=== PATIENT | male | born 1950 ===

== ENCOUNTER 2017-12-18 13:29 | Emergency (ER) | payer BC ==
--- NOTE | 2017-12-18 13:38 | ER Report ---
History and Physical Time Seen By MD: 13:38 Hx. of Stated Complaint: PT JUST GOT INTO TOWN, SOB, DIZZY HPI/ROS Source of History: The Patient Chief Concern: shortness of breath History of Present Illnesses: 67-year-old male reports that he and his came into town today originally from [place]. Reports [place] During the drive he started to feel short of breath and dizzy. When they pulled the vehicle over and he got out the dizziness and shortness of breath did not improve. States laying down has improved his symptoms. Reports no other alleviating or aggravating factors. No associated symptoms including chest pain. No treatments tried. Constitutional: Denies recent illness, malaise, chills, fever. HEENT: Denies headache. No sinus congestion. No sore throat. Cardiovascular: Denies chest pain, palpitations, or diaphoresis. Respiratory: Reports shortness of breath, denies cough or wheezing. Gastrointestinal System: Denies nausea, vomiting, diarrhea or constipation Genitourinary: Denies lower back pain, hematuria, painful voiding, or trouble with emptying bladder. Musculoskeletal: Denies muscular pain, no joint pain. Allergies: Coded Allergies: prochlorperazine (Verified Allergy, Mild, 12/18/17) Home Meds No Active Prescriptions or Reported Meds Past Medical/Surgical History Past Surgical History: testicular surgery at 20 years Denies significant past medical history, no previous hospitalizations. Reviewed Nurses Notes: Yes Constitutional Vital Sign - Last 24 Hours 12/18/17 12/18/17 12/18/17 12/18/17 13:32 13:33 13:59 14:00 Temp 98.2 Pulse 81 71 Resp 16 14 B/P (MAP) 157/83 (107) 157/83 144/85 (104) Pulse Ox 98 96 O2 Delivery Room Air 12/18/17 12/18/17 12/18/17 12/18/17 14:22 14:29 14:30 14:59 Pulse 75 67 Resp 20 B/P (MAP) 143/76 (98) 137/72 (93) Pulse Ox 95 12/18/17 12/18/17 12/18/17 12/18/17 15:00 15:05 15:35 15:52 Pulse 65 76 85 Resp 9 22 16 B/P (MAP) 144/77 (99) 144/78 (100) Pulse Ox 97 93 92 O2 Delivery Room Air Intake and Output 12/18/17 12/18/17 12/19/17 15:00 23:00 07:00 Intake Total 1000 ml Balance 1000 ml Physical Exam Constitutional: 67-year-old male in no acute distress. Extremities warm to touch. Skin: [place] and well perfused BL. Head: Normocephalic and atraumatic. Eyes: Non-injected. No exudates. PERRLA. Corneas grossly intact. Extra ocular movements intact. Neck: Neck supple, erect, trachea midline, no masses. Thyroid no enlargement or nodules, non-tender. Lymph nodes- cervical chain, pre-and post-auricular, occipital, mandibular, and submental lymph nodes non-tender and non-palpable. Cardiovascular: 2+ radial pulses BL equal. PMI - left midclavicular at the 5th ICS. Aortic, pulmonic, tricuspid, and mitral areas - clear S1/S2; no murmur, no S3, or S4. Respiratory: Respiratory Excursion BL equal and symmetrical; no presence of lag ; quiet, rhythmic and effortless. No retractions. BL clear and equal. GI: nondistended, normoactive BS, nontender Differential Diagnoses: AR, PE, pneumonia, dehydration, altitude sickness Medical Decision Making Data Points Result Diagram: 12/18/17 1335 12/18/17 1335 Laboratory Hematology Test 12/18/17 13:35 12/18/17 14:20 Red Blood Count 5.47 M/uL (4.00-5.60) Mean Corpuscular Volume 87.1 fL (80.0-96.0) Mean Corpuscular Hemoglobin 30.2 pg (26.0-33.0) Mean Corpuscular Hemoglobin Concent 34.7 g/dL (32.0-36.0) Red Cell Distribution Width 14.0 % (11.5-14.5) Mean Platelet Volume 8.7 fL (7.2-11.1) Neutrophils (%) (Auto) 58.9 % (39.4-72.5) Lymphocytes (%) (Auto) 30.7 % (17.6-49.6) Monocytes (%) (Auto) 7.6 % (4.1-12.4) Eosinophils (%) (Auto) 2.0 % (0.4-6.7) Basophils (%) (Auto) 0.8 % (0.3-1.4) Nucleated RBC Relative Count (auto) 0.1 /100WBC Neutrophils # (Auto) 5.7 K/uL (2.0-7.4) Lymphocytes # (Auto) 3.0 K/uL (1.3-3.6) Monocytes # (Auto) 0.7 K/uL (0.3-1.0) Eosinophils # (Auto) 0.2 K/uL (0.0-0.5) Basophils # (Auto) 0.1 K/uL (0.0-0.1) Nucleated RBC Absolute Count (auto) 0.00 K/uL D-Dimer Quantitative (PE/DVT) 0.34 ug/ml (0-0.50) Sodium Level 137 mmol/L (137-145) Potassium Level 4.0 mmol/L (3.5-5.0) Chloride Level 101 mmol/L (98-107) Carbon Dioxide Level 26 mmol/L (22-30) Blood Urea Nitrogen 20 mg/dl (9-21) Creatinine 1.10 mg/dl (0.66-1.25) Glomerular Filtration Rate Calc > 60.0 Random Glucose 93 mg/dl (75-110) Calcium Level 9.6 mg/dl (8.4-10.2) Total Bilirubin 0.6 mg/dl (0.2-1.3) Aspartate Amino Transf (AST/SGOT) 33 U/L (0-35) Alanine Aminotransferase (ALT/SGPT) 21 U/L (0-56) Alkaline Phosphatase 84 U/L (0-126) Troponin I < 0.012 ng/ml Total Protein 7.7 g/dl (6.3-8.2) Albumin 4.4 g/dl (3.5-5.0) Urine Color Yellow Urine Clarity Clear Urine pH 7.0 pH (4.8-9.5) Urine Specific [place] 1.013 Urine Protein Negative mg/dL (NEGATIVE) Urine Glucose (UA) Negative mg/dL (NEGATIVE) Urine Ketones Trace mg/dL (NEGATIVE) Urine Blood Negative (NEGATIVE) Urine Nitrite Negative (NEGATIVE) Urine Bilirubin Negative (NEGATIVE) Urine Urobilinogen Negative mg/dL (0.2-1.9) Urine Leukocyte Esterase Negative (NEGATIVE) Urine RBC 1 /HPF (0-2/HPF) Urine WBC None /HPF (0-5/HPF) Urine Squamous Epithelial Cells Few /LPF (</=FEW) Urine Bacteria Negative /HPF (NONE-FEW) Urine Mucus None /HPF (NONE-FEW) Chemistry Test 12/18/17 13:35 12/18/17 14:20 White Blood Count 9.6 k/uL (4.5-11.0) Red Blood Count 5.47 M/uL (4.00-5.60) Hemoglobin 16.5 g/dL (14.0-18.0) Hematocrit 47.7 % (42.0-52.0) Mean Corpuscular Volume 87.1 fL (80.0-96.0) Mean Corpuscular Hemoglobin 30.2 pg (26.0-33.0) Mean Corpuscular Hemoglobin Concent 34.7 g/dL (32.0-36.0) Red Cell Distribution Width 14.0 % (11.5-14.5) Platelet Count 273 K/uL (150-450) Mean Platelet Volume 8.7 fL (7.2-11.1) Neutrophils (%) (Auto) 58.9 % (39.4-72.5) Lymphocytes (%) (Auto) 30.7 % (17.6-49.6) Monocytes (%) (Auto) 7.6 % (4.1-12.4) Eosinophils (%) (Auto) 2.0 % (0.4-6.7) Basophils (%) (Auto) 0.8 % (0.3-1.4) Nucleated RBC Relative Count (auto) 0.1 /100WBC Neutrophils # (Auto) 5.7 K/uL (2.0-7.4) Lymphocytes # (Auto) 3.0 K/uL (1.3-3.6) Monocytes # (Auto) 0.7 K/uL (0.3-1.0) Eosinophils # (Auto) 0.2 K/uL (0.0-0.5) Basophils # (Auto) 0.1 K/uL (0.0-0.1) Nucleated RBC Absolute Count (auto) 0.00 K/uL D-Dimer Quantitative (PE/DVT) 0.34 ug/ml (0-0.50) Glomerular Filtration Rate Calc > 60.0 Calcium Level 9.6 mg/dl (8.4-10.2) Total Bilirubin 0.6 mg/dl (0.2-1.3) Aspartate Amino Transf (AST/SGOT) 33 U/L (0-35) Alanine Aminotransferase (ALT/SGPT) 21 U/L (0-56) Alkaline Phosphatase 84 U/L (0-126) Troponin I < 0.012 ng/ml Total Protein 7.7 g/dl (6.3-8.2) Albumin 4.4 g/dl (3.5-5.0) Urine Color Yellow Urine Clarity Clear Urine pH 7.0 pH (4.8-9.5) Urine Specific [place] 1.013 Urine Protein Negative mg/dL (NEGATIVE) Urine Glucose (UA) Negative mg/dL (NEGATIVE) Urine Ketones Trace mg/dL (NEGATIVE) Urine Blood Negative (NEGATIVE) Urine Nitrite Negative (NEGATIVE) Urine Bilirubin Negative (NEGATIVE) Urine Urobilinogen Negative mg/dL (0.2-1.9) Urine Leukocyte Esterase Negative (NEGATIVE) Urine RBC 1 /HPF (0-2/HPF) Urine WBC None /HPF (0-5/HPF) Urine Squamous Epithelial Cells Few /LPF (</=FEW) Urine Bacteria Negative /HPF (NONE-FEW) Urine Mucus None /HPF (NONE-FEW) Coagulation Test 12/18/17 13:35 D-Dimer Quantitative (PE/DVT) 0.34 ug/ml Urinalysis Test 12/18/17 14:20 Urine Color Yellow Urine Clarity Clear Urine pH 7.0 pH (4.8-9.5) Urine Specific [place] 1.013 Urine Protein Negative mg/dL (NEGATIVE) Urine Glucose (UA) Negative mg/dL (NEGATIVE) Urine Ketones Trace mg/dL (NEGATIVE) Urine Blood Negative (NEGATIVE) Urine Nitrite Negative (NEGATIVE) Urine Bilirubin Negative (NEGATIVE) Urine Urobilinogen Negative mg/dL (0.2-1.9) Urine Leukocyte Esterase Negative (NEGATIVE) Urine RBC 1 /HPF (0-2/HPF) Urine WBC None /HPF (0-5/HPF) Urine Squamous Epithelial Cells Few /LPF (</=FEW) Urine Bacteria Negative /HPF (NONE-FEW) Urine Mucus None /HPF (NONE-FEW) EKG/Imaging Imaging 2 VIEWS CHEST INDICATION: Respiratory distress, dizziness, lightheaded. COMPARISON: None available FINDINGS: Cardiomediastinal silhouette and pulmonary vessels within normal limits. There is no focal infiltrate or lobar consolidation. There is no pneumothorax or pleural effusion. No nodule. Upper abdomen is unremarkable. No acute bony abnormality. IMPRESSION: 1. No acute cardiopulmonary process. Report Dictated By: Rafa Silva at 12/18/2017 2:29 PM Report E-Signed By: Rafa Silva at 12/18/2017 2:30 PM ED Course/Re-evaluation ED Course 67-year-old male presents to the emergency department after the experienced shortness of breath and dizziness. The patient and his are in town from [place]. History and physical examination were obtained. Differential diagnoses were considered and shared with the patient and patient's . CBC, CMP, troponin, d-dimer, EKG, and chest x-ray obtained. Lab work was unremarkable, EKG showed a normal sinus rhythm, troponin was negative, d-dimer was negative as well. Patient had received approximately half of a liter of normal saline. Patient states he feels significantly improved at this time. We will go ahead and discharge patient. He is to follow-up with his primary care provider with any concerns in 1-2 weeks. If he is any worsening of his condition he is to return to the emergency room immediately. Patient states that he is feeling better would like to go home at this time. He is continue with his normal medications. Patient and his verbalized understanding and agreement with plan. Decision to Disposition Date: Dec 18, 2017 Decision to Disposition Time: 15:47 Depart Departure Latest Vital Signs Vital Signs Date Time Temp Pulse Resp B/P (MAP) Pulse Ox O2 Delivery O2 Flow Rate FiO2 12/18/17 15:52 85 16 144/78 (100) 92 Room Air 12/18/17 13:33 98.2 Impression: Primary Impression: Dehydration Condition: Improved Disposition: HOME OR SELF-CARE New Scripts No Active Prescriptions or Reported Meds Patient Instructions: Dehydration (ED) Additional Instructions: Increase fluid intake. Get plenty of rest. Follow up in the ER if condition worsens. Limit activity by how you are feeling. Follow up with your primary care provider in the next 1-2 weeks when you return home. If you have worsening symptoms I would encourage you to stay in a lower elevation. JANETTE LUCIO Dec 18, 2017 13:38
[2017-12-18] MEDS ORDERED: NS(*) 0.9% 1000 ML BAG 1,000 ML IV ONE (14:03)
--- NOTE | 2017-12-18 14:15 | EKG ---
FACILITY: [facility] PATIENT NAME: JONO MALDONADO : [id number] MR: [id number] V: [id number] EXAM DATE: ORDERING PHYSICIAN: JANETTE LUCIO TECHNOLOGIST: CLIFTON Amaya Reason : SYNCOPE Blood Pressure : / mmHG Vent. Rate : 073 BPM Atrial Rate : 073 BPM P-R Int : 128 ms QRS Dur : 090 ms QT Int : 394 ms P-R-T Axes : 065 036 063 degrees QTc Int : 434 ms Normal sinus rhythm Normal ECG No previous ECGs available Confirmed by JIMBO POSADA ([id number]) on 12/18/2017 8:23:55 PM Referred By: PALMER Confirmed By:JIMBO POSADA
[2017-12-18 14:16] LABS: PLATELET COUNT, AUTOMATED 273 K/uL (150-450)
--- NOTE | 2017-12-18 14:35 | RADIOLOGY IMAGING REPORT ---
FACILITY: [facility] - [place] PATIENT NAME: Niraj Daniels : 1950 MR: [id number] V: [id number] EXAM DATE: ORDERING PHYSICIAN: JANETTE LUCIO TECHNOLOGIST: Location: [facility] [place] Patient: Niraj Daniels : 1950 Visit/Account:[id number] Date of Sevice: 12/18/2017 2 VIEWS CHEST INDICATION: Respiratory distress, dizziness, lightheaded. COMPARISON: None available FINDINGS: Cardiomediastinal silhouette and pulmonary vessels within normal limits. There is no focal infiltrate or lobar consolidation. There is no pneumothorax or pleural effusion. No nodule. Upper abdomen is unremarkable. No acute bony abnormality. IMPRESSION: 1. No acute cardiopulmonary process. Report Dictated By: Rafa Silva at 12/18/2017 2:29 PM Report E-Signed By: Rafa Silva at 12/18/2017 2:30 PM WSN:[id number]
[2017-12-18 15:52] VITALS: BP 144/78
== END 2017-12-18 16:00 | disposition home or self-care (01) ==
LOC: ER 13:47
DX: E86.0 Dehydration (principal)
CPT/HCPCS: 71046; 81001; 84484; 85025; 85379; 93005; 96360; 99284; J7030; 82040; 82247; 82310; 82374; 82435; 82565; 82947; 84075; 84132; 84155; 84295; 84450; 84460; 84520